=== PATIENT | male | born 1990 | race Two or more races ===

== ENCOUNTER 2016-09-27 10:18 | Emergency (ER) | payer OTHER ==
[~2016-09-27] VITALS: Ht 177.8 cm; Wt 106.1 kg
[2016-09-27 11:17] LABS: Basophils # (auto) 0 uL; Basophils % (auto) 0.5 % (0.0-2.0); DEFINITIVE VIEW TRANSMISSION; Eosinophils # (auto) 0.3 uL; Eosinophils % (auto) 5.2 % (0.0-7.0); Hematocrit 45.7 % (41.0-53.0); Hemoglobin 15.3 g/dL (13.5-17.5); Lymphocytes # (auto) 2.8 uL; Lymphocytes % (auto) 45.7 % (10.0-50.0); Mean Corpuscular Hemoglobin 26.6 pg (28.0-32.0); Mean Corpuscular Hgb Conc. 33.5 g/dL (32.0-36.0); Mean Corpuscular Volume 79.6 fL (80.0-100.0); Mean Platelet Volume 9.1 fL (7.4-10.4); Monocytes # (auto) 0.5 uL; Monocytes % (auto) 7.6 % (0.0-12.0); Neutrophils # (auto) 2.6 uL; Platelet Count (auto) 263 10^3/uL (140-450); Red Cell Distribution Width 13.1 % (11.6-16.0); White Blood Cell 6.2 10^3/uL (4.4-10.8)
[2016-09-27 11:39] LABS: Albumin 3.7 g/dL (3.4-5.0); Bilirubin, Total 0.2 mg/dL (0.2-1.0); Calcium 9.4 mg/dL (8.5-10.1); Potassium 4.2 mmol/L (3.5-5.1); Total Protein 8.1 g/dL (6.4-8.2)
[2016-09-27 18:15] VITALS: BP 122/89
== END 2016-09-27 19:30 | disposition left against medical advice (07) ==
LOC: ER 10:31
DX: K62.5 Hemorrhage of anus and rectum (principal)
CPT/HCPCS: 36415; 80053; 85025